=== PATIENT | female | born 2000 ===

== ENCOUNTER 2022-06-08 14:31 | Outpatient (CLI) | payer BC ==
[~2022-06-08] VITALS: Ht 160 cm; Wt 98.2 kg
[2022-06-08 14:54] VITALS: BP 130/77
[2022-06-08] MEDS ORDERED: PREN-37 PO (15:00)
[2022-06-08] MEDS ORDERED: METF500S7 PO (15:00)
[2022-06-08 15:50] VITALS: BP 130/77
--- NOTE | 2022-06-09 08:33 | Physician Query-Final Dx ---
PEARL,06/09/22 0833: Clinic Account Progress/Dx Physician Query: Please give diagnosis Please include # weeks gestation Date of Service Jun 08, 2022 at 14:31 DESIREE NJ MD 06/09/22 1938: Clinic Account Progress/Dx DIAGNOSIS: Diagnosis Gestational diabetes Reactive NST PEARL,MayJun 09, 2022 08:33 DESIREE NJ MD Jun 09, 2022 19:38
== END 2022-06-08 15:50 | disposition home or self-care (01) ==
LOC: LDRP 14:31 → WSo 14:31
PROVIDERS: ATTEND Family Medicine
DX: O24.419 Gestational diabetes mellitus in pregnancy, unspecified control (principal); O36.8390 Maternal care for abnormalities of the fetal heart rate or rhythm, unspecified trimester, not applicable or unspecified; Z3A.00 Weeks of gestation of pregnancy not specified
CPT/HCPCS: 99212

== ENCOUNTER 2022-06-13 15:15 | Inpatient (IN) | payer BC, MEDICAID ==
[~2022-06-13] VITALS: Ht 160 cm; Wt 97.7 kg
[~2022-06-13 15:15] MED LIST: METF500S7 PO; PREN-37 PO
[2022-06-13 19:30] VITALS: BP 134/66
[2022-06-13] MEDS ORDERED: MINERAL OIL 30 ML UDC TOP PRN (19:30)
[2022-06-13] MEDS ORDERED: LACTATED RINGERS 1,000 ML IV SCH (19:30)
[2022-06-13 19:48] LABS: BASOPHILS % (AUTO) 0 % (0-10); EOSINOPHILS # (AUTO) 0.1 10^3/uL (0.0-0.3); EOSINOPHILS % (AUTO) 1 % (0-10); HEMATOCRIT 37 % (35-52); HEMOGLOBIN 12.2 g/dL (11.5-16.0); LYMPHOCYTES # (AUTO) 2.1 10^3/uL (1.0-4.0); LYMPHOCYTES % (AUTO) 24 % (12-44); MEAN CORPUSCULAR HEMOGLOBIN 28 pg (25-34); MEAN CORPUSCULAR HGB CONC 33 g/dL (32-36); MEAN CORPUSCULAR VOLUME 84 fL (80-99); MEAN PLATELET VOLUME 11.9 fL (9.0-12.2); MONOCYTES # (AUTO) 0.7 10^3/uL (0.0-1.0); MONOCYTES % (AUTO) 8 % (0-12); NEUTROPHILS % (AUTO) 67 % (42-75); PLATELET COUNT 318 10^3/uL (130-400); WHITE BLOOD COUNT 8.9 10^3/uL (4.3-11.0)
[2022-06-13] MEDS ORDERED: WATER (STERILE) FOR INJECTION 20 ML ONE (19:58)
[2022-06-13] MEDS ORDERED: AMPICILLIN 2,000 MG/14.8 ML (IV USE) ONE (19:58)
[2022-06-13] MEDS ORDERED: AMPICILLIN FOR IV USE 2,000 MG in NS (IVPB) 50 ML IV ONE (20:07)
[2022-06-13 21:00] VITALS: BP 105/58
[2022-06-13] MEDS: LACTATED RINGERS 1,000 ML IV SCH (21:21)
[2022-06-13] MEDS: CATHETER FLUSH 10 ML SYR IV SCH (21:22)
[2022-06-13 22:00] VITALS: BP 115/73
[2022-06-13 23:06] VITALS: BP 108/68
[2022-06-14] VITALS (77 sets, daily range): BP systolic 101–141; BP diastolic 53–90
[2022-06-14] MEDS: AMPICILLIN FOR IV USE 1,000 MG in NS (IVPB) 50 ML IV SCH ×6 (00:14→21:21)
[2022-06-14] MEDS: LACTATED RINGERS 1,000 ML IV SCH ×3 (00:43→18:25)
[2022-06-14] MEDS ORDERED: fentaNYL INJ 100 MCG/2 ML AMP ONE ×2 (04:58→08:52)
[2022-06-14] MEDS: fentaNYL INJ 100 MCG/2 ML AMP IVP PRN ×2 (05:24→06:53)
[2022-06-14] MEDS: CATHETER FLUSH 10 ML SYR IV SCH (06:02)
[2022-06-14] MEDS ORDERED: fentaNYL 2 mcg/ml BUPIVA 0.125 100 ML ONE (08:23)
--- NOTE | 2022-06-14 08:40 | History & Physical-OB ---
OB - Chief Complaint & HPI Date/Time Date of Admission: Date of Admission: Jun 13, 2022 at 19:17 Date seen by a Provider: Jun 14, 2022 Time Seen by a Provider: 08:00 Chief Complaint/History OB-Reason for Admission/Chief: Induction of Labor Hx : 1 Hx Para: 0 Expected Date of Delivery: Jun 20, 2022 Gestational Age in Weeks: 39 Gestational Age in Days: 0 Indication for induction: medical complication Other reason for admission: G1 at 39w1d admitted for induction of labor due to well controlled GDMA2 on metformin. Followed with weekly BPPs which have been reassuring, EFW on 06/08 was 3540 grams. History of Labs O+, antibody neg, RI. HIV/hepB/RPR NR. GC/chlamydia neg. GBS pos. Allergies and Home Medications Allergies Coded Allergies: acetaminophen (Verified Allergy, Severe, Anaphylaxis, 06/03/22) dextromethorphan (Verified Allergy, Severe, Anaphylaxis, 06/03/22) doxylamine (Verified Allergy, Severe, Anaphylaxis, 06/03/22) pseudoephedrine (Verified Allergy, Severe, Anaphylaxis, 06/03/22) Patient Home Medication List Home Medication List Reviewed: Yes Metformin HCl (Metformin HCl) 500 Mg/5 Ml Solution, 500 MG PO BID, (Reported) Entered as Reported by: ELIZABET KILGORE on 06/08/221499 Last Action: Last Taken Edited Vit/Iron Fumarate/FA ( Tablet) 27 Mg Iron-800 Mcg Tablet, 1 EACH PO, (Reported) Entered as Reported by: ELIZABET KILGORE on 06/08/221499 Last Action: Last Taken Edited OB - History Hx of Present Ultrasounds: Normal mid trimester US Obstetrical Complications: Gestational Diabetes Information Induced Hypertension: No Maternal Gestational Diabetes: Yes Hemorrhage: No Obstetrical History Hx : 1 Hx Para: 0 Patient Past Medical History PMHx: denies surghx: Denies Social History/Family History Alcohol Use: Denies Use Recreational Drug Use: No Smoking Cessation: Never smoker 2nd Hand Smoke Exposure: No Immunizations Influenza Vaccine Up-to-Date: Yes; Up-to-Date (01/29/22) COVID19 Booster (Date): 01/29/22 COVID19 Vaccine Fur Mixer Operator: Soukboard Bivalent Tetanus Booster (TDap): Less than 5yrs (04/13/22) Rubella: immune RPR/VDRL: Negative GBS Status: Positive HBsAG: Negative OB - Admission Exam Physical Exam Vitals: Vital Signs 06/14/22 06:59 Temp 36.4 Pulse 91 Resp 18 B/P (MAP) 118/70 (86) Pulse Ox 100 O2 Delivery Room Air HEENT: NCAT Abdomen: Non tender Extremities: Normal Cervical Dilatation: 4cm Effacement: 100% Station: 0 Membranes: Ruptured Accelerations: Accelerations Present Decelerations: No Decelerations Short Term Variability: Present Layout Inspector Variability: Average (6-25) Contractions on Admission: None Reynolds Scoring Tool (Modified) Dilation (cm): 1-2cm (1) Effacement (%): 0-30% (0) Descent/Station: -3 (0) Cervix Consistency: Soft (2) Cervix Position: Middle/Mid-Position (1) Subtract 1 point for: Nulliparity (-1) Reynolds Score: 3 Labs Laboratory Tests Test 06/13/22 19:35 06/14/22 00:13 06/14/22 04:07 Range/Units White Blood Count 8.9 4.3-11.0 10^3/uL Red Blood Count 4.37 3.80-5.11 10^6/uL Hemoglobin 12.2 11.5-16.0 g/dL Hematocrit 37 35-52 % Mean Corpuscular Volume 84 80-99 fL Mean Corpuscular Hemoglobin 28 25-34 pg Mean Corpuscular Hemoglobin Concent 33 32-36 g/dL Red Cell Distribution Width 15.0 H 10.0-14.5 % Platelet Count 318 130-400 10^3/uL Mean Platelet Volume 11.9 9.0-12.2 fL Immature Granulocyte % (Auto) 0 % Neutrophils (%) (Auto) 67 42-75 % Lymphocytes (%) (Auto) 24 12-44 % Monocytes (%) (Auto) 8 0-12 % Eosinophils (%) (Auto) 1 0-10 % Basophils (%) (Auto) 0 0-10 % Neutrophils # (Auto) 6.0 1.8-7.8 10^3/uL Lymphocytes # (Auto) 2.1 1.0-4.0 10^3/uL Monocytes # (Auto) 0.7 0.0-1.0 10^3/uL Eosinophils # (Auto) 0.1 0.0-0.3 10^3/uL Basophils # (Auto) 0.0 0.0-0.1 10^3/uL Immature Granulocyte # (Auto) 0.0 0.0-0.1 10^3/uL Glucose Level 77 70-105 MG/DL Glucometer 67 L 79 70-110 MG/DL OB - Assessment/Plan/Diagnosis Assessment Admission Dx Term intrauterine at 39 weeks gestation Gestational diabetes controlled with metformin GBS positive Admission Status: Inpatient Order (span 2 midnights) Reason for Inpatient Admission: Induction, labor, course Plan Plan: Induction Induction Method: per Misoprostol Protocol Other Plan Ampicillin for GBS pos Fingerstick glucose q4 DESIREE NJ MD Jun 14, 2022 08:40
[2022-06-14] MEDS ORDERED: BUPIVACAINE 0.25% 10 ML (SENSORCAINE) VIAL ONE (08:53)
[2022-06-14] MEDS: fentaNYL 2 mcg/ml BUPIVA 0.125 100 ML IV SCH ×2 (09:17→16:52)
[2022-06-14] MEDS ORDERED: CATHETER FLUSH 10 ML SYR IV PRN (09:45)
[2022-06-14] MEDS ORDERED: ONDANSETRON 4 MG/2 ML (SDV) Z0FRAN IV PRN (09:45)
[2022-06-14] MEDS ORDERED: LACTATED RINGERS 1,000 ML IV ONE (09:45)
[2022-06-14] MEDS ORDERED: NALOXONE 0.4 MG/ML 1 ML (NARCAN) VIAL IV PRN (09:45)
[2022-06-14] MEDS ORDERED: OXYTOCIN PRE-MIX DRIP 500 ML IV SCH (10:30)
--- NOTE | 2022-06-14 15:58 | Labor Progress Note ---
Labor Progress Note Labor Progress Note Date Seen by Provider: Jun 14, 2022 Time Seen by Provider: 15:45 Subjective: Pt feeling comfortable overall with epidural but has some pelvic pain and pressure. Objective: Last cervical exam per nursing less than 2 hours ago, reported 5-6 cm heart tones: currently 130 beats per minute, moderate variability, reactive; reviewed strip, had period of minimal/nearly absent variability from about [id number], no decels Tocometer: 3 ctx/10 minutes; difficult to trace while side-lying Assessment/Plan: Edgardo Cox is a 21 /Para 1 / 0,Gestational Age (wks)39 here for induction of labor for GDMA2. SROM this morning around 6 am. CEFM/TOCO Continue pitocin Anesthesia: epidural Anticipate vaginal delivery. Vitals - Labs Vital Signs - I&O Vital Signs Date Time Temp Pulse Resp B/P (MAP) Pulse Ox O2 Delivery O2 Flow Rate FiO2 06/14/22 15:36 76 18 124/74 (91) 100 Non Rebreather 15.00 06/14/22 15:20 80 18 120/67 (84) 100 Non Rebreather 15.00 06/14/22 15:06 89 18 109/58 (75) 100 Non Rebreather 15.00 06/14/22 14:51 83 18 112/59 (76) 100 Non Rebreather 15.00 06/14/22 14:41 Non Rebreather 15.00 06/14/22 14:35 89 18 105/57 (73) 98 Room Air 06/14/22 14:20 84 18 101/55 (70) 97 Room Air 06/14/22 14:09 36.2 06/14/22 14:06 88 18 111/64 (80) 97 Room Air 06/14/22 13:50 84 18 110/59 (76) 97 Room Air 06/14/22 13:36 75 18 114/63 (80) 97 Room Air 06/14/22 13:20 89 18 111/65 (80) 96 Room Air 06/14/22 13:05 81 18 111/65 (80) 97 Room Air 06/14/22 12:50 91 18 113/64 (80) 98 Room Air 06/14/22 12:35 95 18 114/65 (81) 98 Room Air 2/6/23 12:21 78 18 112/61 (78) 98 Room Air 06/14/22 12:12 36.4 06/14/22 12:06 93 18 114/62 (79) 98 Room Air 06/14/22 11:50 94 18 115/62 (79) 98 Room Air 06/14/22 11:35 92 18 115/64 (81) 96 Room Air 06/14/22 11:27 36.5 06/14/22 11:22 82 18 121/69 (86) 97 Room Air 06/14/22 11:05 82 18 111/67 (82) 92 Room Air 06/14/22 10:50 77 18 117/67 (84) 97 Room Air 06/14/22 10:35 88 18 120/64 (82) 98 Room Air 06/14/22 10:17 104 18 130/59 (82) 97 Room Air 06/14/22 10:12 36.1 100 18 126/78 (94) 99 Room Air 06/14/22 10:08 82 18 122/75 (91) 100 Room Air 06/14/22 10:03 94 18 122/76 (91) 99 Room Air 06/14/22 09:57 88 18 139/81 (100) 97 Room Air 06/14/22 09:52 80 18 123/71 (88) 98 Room Air 06/14/22 09:47 86 18 118/68 (85) 98 Room Air 06/14/22 09:43 82 18 118/72 (87) 98 Room Air 06/14/22 09:38 81 18 123/72 (89) 98 Room Air 06/14/22 09:32 102 18 123/67 (85) 98 Room Air 06/14/22 09:26 77 20 129/72 (91) Room Air 06/14/22 09:23 86 20 124/71 (88) 98 Room Air 06/14/22 09:20 99 20 127/73 (91) 98 Room Air 06/14/22 09:17 93 20 129/77 (94) Room Air 06/14/22 09:13 90 20 124/74 (91) 95 Room Air 06/14/22 09:10 88 20 129/76 (93) Room Air 06/14/22 09:07 102 20 130/79 (96) 96 Room Air 06/14/22 09:04 109 20 131/71 (91) 97 Room Air 06/14/22 09:01 123 20 125/73 (90) 97 Room Air 06/14/22 08:59 109 20 129/74 (92) 95 Room Air 06/14/22 07:26 35.7 06/14/22 06:59 36.4 91 18 118/70 (86) 100 Room Air 06/14/22 06:02 36.3 91 18 118/70 (86) 100 Room Air 06/14/22 05:58 36.6 74 16 118/70 (86) 100 Room Air 06/14/22 02:35 36.5 72 18 114/71 (85) Room Air 06/14/22 01:00 36.5 06/14/22 00:00 36.3 93 16 121/75 (90) Room Air 06/13/22 23:06 36.3 82 16 108/68 (81) 06/13/22 22:00 36.5 74 18 115/73 (87) Room Air 06/13/22 21:00 76 18 105/58 (74) Room Air 06/13/22 20:00 36.4 06/13/22 19:30 36.3 99 18 100 Room Air I & O 06/14/22 07:00 Intake Total 15 ml Balance 15 ml Labs Laboratory Tests 06/13/22 19:35: White Blood Count 8.9, Red Blood Count 4.37, Hemoglobin 12.2, Hematocrit 37, Mean Corpuscular Volume 84, Mean Corpuscular Hemoglobin 28, Mean Corpuscular Hemoglobin Concent 33, Red Cell Distribution Width 15.0H, Platelet Count 318, Mean Platelet Volume 11.9, Immature Granulocyte % (Auto) 0, Neutrophils (%) (Auto) 67, Lymphocytes (%) (Auto) 24, Monocytes (%) (Auto) 8, Eosinophils (%) (Auto) 1, Basophils (%) (Auto) 0, Neutrophils # (Auto) 6.0, Lymphocytes # (Auto) 2.1, Monocytes # (Auto) 0.7, Eosinophils # (Auto) 0.1, Basophils # (Auto) 0.0, Immature Granulocyte # (Auto) 0.0, Glucose Level 77 06/14/22 00:13: Glucometer 67L 06/14/22 04:07: Glucometer 79 06/14/22 08:13: Glucometer 102 06/14/22 12:10: Glucometer 103 DESIREE NJ MD Jun 14, 2022 15:58
--- NOTE | 2022-06-14 16:19 | Labor Progress Note ---
Labor Progress Note Labor Progress Note Date Seen by Provider: Jun 14, 2022 Time Seen by Provider: 16:00 Subjective: heart rate tracing lost, per bedside nurse, able to hear heart tones in the 80s, called to bedside, and heart tones 100-110 at that time. Objective: Cervical exam: /+1 Consistency: soft Position: anterior Presentation: vertex Assessment/Plan: Edgardo Cox is a (21 /Para 1 / 0,Gestational Age (wks)39 here for induction of labor due to GDMA2. FSE placed and heart tones in 130s with moderate variability. Some cervical change from last check. Discussed with patient and if recurrent prolonged decelerations may need emergent delivery, but current heart tones are reassuring, will monitor closely. FSE/TOCO Continue pitocin Anesthesia: Epidural Anticipate vaginal delivery. Vitals - Labs Vital Signs - I&O Vital Signs Date Time Temp Pulse Resp B/P (MAP) Pulse Ox O2 Delivery O2 Flow Rate FiO2 06/14/22 15:36 76 18 124/74 (91) 100 Non Rebreather 15.00 06/14/22 15:20 80 18 120/67 (84) 100 Non Rebreather 15.00 06/14/22 15:06 89 18 109/58 (75) 100 Non Rebreather 15.00 06/14/22 14:51 83 18 112/59 (76) 100 Non Rebreather 15.00 06/14/22 14:41 Non Rebreather 15.00 06/14/22 14:35 89 18 105/57 (73) 98 Room Air 06/14/22 14:20 84 18 101/55 (70) 97 Room Air 06/14/22 14:09 36.2 06/14/22 14:06 88 18 111/64 (80) 97 Room Air 06/14/22 13:50 84 18 110/59 (76) 97 Room Air 06/14/22 13:36 75 18 114/63 (80) 97 Room Air 06/14/22 13:20 89 18 111/65 (80) 96 Room Air 06/14/22 13:05 81 18 111/65 (80) 97 Room Air 06/14/22 12:50 91 18 113/64 (80) 98 Room Air 06/14/22 12:35 95 18 114/65 (81) 98 Room Air 06/14/22 12:21 78 18 112/61 (78) 98 Room Air 06/14/22 12:12 36.4 06/14/22 12:06 93 18 114/62 (79) 98 Room Air 06/14/22 11:50 94 18 115/62 (79) 98 Room Air 06/14/22 11:35 92 18 115/64 (81) 96 Room Air 06/14/22 11:27 36.5 06/14/22 11:22 82 18 121/69 (86) 97 Room Air 06/14/22 11:05 82 18 111/67 (82) 92 Room Air 06/14/22 10:50 77 18 117/67 (84) 97 Room Air 06/14/22 10:35 88 18 120/64 (82) 98 Room Air 06/14/22 10:17 104 18 130/59 (82) 97 Room Air 06/14/22 10:12 36.1 100 18 126/78 (94) 99 Room Air 06/14/22 10:08 82 18 122/75 (91) 100 Room Air 06/14/22 10:03 94 18 122/76 (91) 99 Room Air 06/14/22 09:57 88 18 139/81 (100) 97 Room Air 06/14/22 09:52 80 18 123/71 (88) 98 Room Air 06/14/22 09:47 86 18 118/68 (85) 98 Room Air 06/14/22 09:43 82 18 118/72 (87) 98 Room Air 06/14/22 09:38 81 18 123/72 (89) 98 Room Air 06/14/22 09:32 102 18 123/67 (85) 98 Room Air 06/14/22 09:26 77 20 129/72 (91) Room Air 06/14/22 09:23 86 20 124/71 (88) 98 Room Air 06/14/22 09:20 99 20 127/73 (91) 98 Room Air 06/14/22 09:17 93 20 129/77 (94) Room Air 06/14/22 09:13 90 20 124/74 (91) 95 Room Air 06/14/22 09:10 88 20 129/76 (93) Room Air 06/14/22 09:07 102 20 130/79 (96) 96 Room Air 06/14/22 09:04 109 20 131/71 (91) 97 Room Air 06/14/22 09:01 123 20 125/73 (90) 97 Room Air 06/14/22 08:59 109 20 129/74 (92) 95 Room Air 06/14/22 07:26 35.7 06/14/22 06:59 36.4 91 18 118/70 (86) 100 Room Air 06/14/22 06:02 36.3 91 18 118/70 (86) 100 Room Air 06/14/22 05:58 36.6 74 16 118/70 (86) 100 Room Air 06/14/22 02:35 36.5 72 18 114/71 (85) Room Air 06/14/22 01:00 36.5 06/14/22 00:00 36.3 93 16 121/75 (90) Room Air 06/13/22 23:06 36.3 82 16 108/68 (81) 06/13/22 22:00 36.5 74 18 115/73 (87) Room Air 06/13/22 21:00 76 18 105/58 (74) Room Air 06/13/22 20:00 36.4 06/13/22 19:30 36.3 99 18 100 Room Air I & O 06/14/22 07:00 Intake Total 15 ml Balance 15 ml Labs Laboratory Tests 06/13/22 19:35: White Blood Count 8.9, Red Blood Count 4.37, Hemoglobin 12.2, Hematocrit 37, Me an Corpuscular Volume 84, Mean Corpuscular Hemoglobin 28, Mean Corpuscular Hemoglobin Concent 33, Red Cell Distribution Width 15.0H, Platelet Count 318, Mean Platelet Volume 11.9, Immature Granulocyte % (Auto) 0, Neutrophils (%) (Auto) 67, Lymphocytes (%) (Auto) 24, Monocytes (%) (Auto) 8, Eosinophils (%) (Auto) 1, Basophils (%) (Auto) 0, Neutrophils # (Auto) 6.0, Lymphocytes # (Auto) 2.1, Monocytes # (Auto) 0.7, Eosinophils # (Auto) 0.1, Basophils # (Auto) 0.0, Immature Granulocyte # (Auto) 0.0, Glucose Level 77 06/14/22 00:13: Glucometer 67L 06/14/22 04:07: Glucometer 79 06/14/22 08:13: Glucometer 102 06/14/22 12:10: Glucometer 103 DESIREE NJ MD Jun 14, 2022 16:19
[2022-06-14] MEDS ORDERED: LIDOCAINE 1% INJ 10 ML VIAL ONE (19:44)
[2022-06-14] MEDS: OXYTOCIN PRE-MIX DRIP 500 ML IV SCH (23:38)
[2022-06-15] VITALS (11 sets, daily range): BP systolic 106–130; BP diastolic 56–70
[2022-06-15] MEDS: OXYTOCIN PRE-MIX DRIP 500 ML IV SCH (00:02)
--- NOTE | 2022-06-15 00:20 | OB Labor & Delivery Record ---
Vag Delivery Note Vag Delivery Note Date of Delivery: 06/15/22 Preoperative Diagnosis: Edgardo Cox is a (21 /Para 1 / 0,Gestational Age (wks)39with 1 day Postoperative Diagnosis: Same Surgeon: DESIREE NJ Anesthesia: Epidural Delivery Type: Findings: Viable female , apgars 9/9, weight 8#13 Lacerations: third degree perineal, right periurethral Intact placenta with 3 vessel cord. No nuchal cord, body cord or shoulder dystocia Estimated Blood Loss: 200 ml Complications: None Condition: Stable Description of Procedure: The patient is a 21 year old female who presented for induction of labor due to GDMA2. She was admitted and informed consent was obtained. Her labor course was remarkable for prolonged active phase and second stage. She progressed to complete dilatation and began to push. She was then set up for delivery. The 's head was delivered atraumatically in the AL position. The shoulders and remainder of the infant's body were then delivered without difficulty. Upon delivery, the infant was vigorous and placed on maternal chest and the mouth and nares were bulb suctioned. After a delay cord was doubly clamped and cut and the infant remained on maternal chest. An intact placenta with 3-vessel cord delivered via Bisi and there was found to be minimal bleeding.~ Vigorous fundal massage was performed and the fundus was found to be firm. IV oxytocin was given. Examination of the vagina and perineum revealed a third degree perineal laceration repaired in the usual fashion with 2-0 vicryl for the muscle layer and 3-0 vicryl rapide suture for the second degree section. Following the repair, sponge, instrument and needle counts were correct. Mom and baby were both in stable condition in the labor suite. Vitals - Labs Vital Signs - I&O Vital Signs Date Time Temp Pulse Resp B/P (MAP) Pulse Ox O2 Delivery O2 Flow Rate FiO2 06/14/22 18:50 37.1 97 18 119/63 (81) 98 Room Air 06/14/22 18:36 98 18 109/55 (73) 99 Room Air 06/14/22 18:20 96 18 112/56 (74) 98 Room Air 06/14/22 18:07 96 18 119/66 (83) 98 Room Air 06/14/22 17:50 94 18 109/61 (77) 98 Room Air 06/14/22 17:35 96 18 111/59 (76) 99 Room Air 06/14/22 17:20 104 18 110/55 (73) 98 Room Air 06/14/22 17:05 104 18 112/55 (74) 98 Room Air 06/14/22 16:50 90 18 110/59 (76) 99 Room Air 06/14/22 16:35 88 18 131/82 (98) 100 Non Rebreather 15.00 06/14/22 16:23 85 18 134/77 (96) 100 Non Rebreather 15.00 06/14/22 16:05 92 18 130/84 (99) 100 Non Rebreather 15.00 06/14/22 15:50 76 18 123/72 (89) 100 Non Rebreather 15.00 06/14/22 15:36 76 18 124/74 (91) 100 Non Rebreather 15.00 06/14/22 15:20 80 18 120/67 (84) 100 Non Rebreather 15.00 06/14/22 15:06 89 18 109/58 (75) 100 Non Rebreather 15.00 06/14/22 14:51 83 18 112/59 (76) 100 Non Rebreather 15.00 06/14/22 14:41 Non Rebreather 15.00 06/14/22 14:35 89 18 105/57 (73) 98 Room Air 06/14/22 14:20 84 18 101/55 (70) 97 Room Air 06/14/22 14:09 36.2 06/14/22 14:06 88 18 111/64 (80) 97 Room Air 06/14/22 13:50 84 18 110/59 (76) 97 Room Air 06/14/22 13:36 75 18 114/63 (80) 97 Room Air 06/14/22 13:20 89 18 111/65 (80) 96 Room Air 06/14/22 13:05 81 18 111/65 (80) 97 Room Air 06/14/22 12:50 91 18 113/64 (80) 98 Room Air 06/14/22 12:35 95 18 114/65 (81) 98 Room Air 06/14/22 12:21 78 18 112/61 (78) 98 Room Air 06/14/22 12:12 36.4 06/14/22 12:06 93 18 114/62 (79) 98 Room Air 06/14/22 11:50 94 18 115/62 (79) 98 Room Air 06/14/22 11:35 92 18 115/64 (81) 96 Room Air 06/14/22 11:27 36.5 06/14/22 11:22 82 18 121/69 (86) 97 Room Air 06/14/22 11:05 82 18 111/67 (82) 92 Room Air 06/14/22 10:50 77 18 117/67 (84) 97 Room Air 06/14/22 10:35 88 18 120/64 (82) 98 Room Air 06/14/22 10:17 104 18 130/59 (82) 97 Room Air 06/14/22 10:12 36.1 100 18 126/78 (94) 99 Room Air 06/14/22 10:08 82 18 122/75 (91) 100 Room Air 06/14/22 10:03 94 18 122/76 (91) 99 Room Air 06/14/22 09:57 88 18 139/81 (100) 97 Room Air 06/14/22 09:52 80 18 123/71 (88) 98 Room Air 06/14/22 09:47 86 18 118/68 (85) 98 Room Air 06/14/22 09:43 82 18 118/72 (87) 98 Room Air 06/14/22 09:38 81 18 123/72 (89) 98 Room Air 06/14/22 09:32 102 18 123/67 (85) 98 Room Air 06/14/22 09:26 77 20 129/72 (91) Room Air 06/14/22 09:23 86 20 124/71 (88) 98 Room Air 06/14/22 09:20 99 20 127/73 (91) 98 Room Air 06/14/22 09:17 93 20 129/77 (94) Room Air 06/14/22 09:13 90 20 124/74 (91) 95 Room Air 06/14/22 09:10 88 20 129/76 (93) Room Air 06/14/22 09:07 102 20 130/79 (96) 96 Room Air 06/14/22 09:04 109 20 131/71 (91) 97 Room Air 06/14/22 09:01 123 20 125/73 (90) 97 Room Air 06/14/22 08:59 109 20 129/74 (92) 95 Room Air 06/14/22 07:26 35.7 06/14/22 06:59 36.4 91 18 118/70 (86) 100 Room Air 06/14/22 06:02 36.3 91 18 118/70 (86) 100 Room Air 06/14/22 05:58 36.6 74 16 118/70 (86) 100 Room Air 06/14/22 02:35 36.5 72 18 114/71 (85) Room Air 06/14/22 01:00 36.5 I & O 06/15/22 07:00 Intake Total 1000 ml Balance 1000 ml Labs Laboratory Tests 06/14/22 04:07: Glucometer 79 06/14/22 08:13: Glucometer 102 06/14/22 12:10: Glucometer 103 06/14/22 16:45: Glucometer 71 06/14/22 20:42: Glucometer 94 06/14/22 21:28: Glucometer 94 06/14/22 23:26: Glucometer 132H DESIREE NJ MD Jun 15, 2022 00:20
[2022-06-15] MEDS ORDERED: WITCH HAZEL(TUCKS) 40 EA JAR TOP PRN (00:30)
[2022-06-15] MEDS ORDERED: BENZOCAINE/MENTHOL (DERMOPLAST) 56 ML CAN TP PRN (00:30)
[2022-06-15] MEDS ORDERED: DIBUCAINE 1% OINTMENT 28 GM TUBE TOP PRN (00:30)
[2022-06-15] MEDS ORDERED: IBUPROFEN 600 MG (MOTRIN) TAB PO ONE (02:28)
[2022-06-15] MEDS: IBUPROFEN 600 MG (MOTRIN) TAB PO SCH ×4 (02:34→21:05)
[2022-06-15] MEDS ORDERED: CATHETER FLUSH 10 ML SYR IV SCH (06:00)
[2022-06-15] MEDS: DOCUSATE SODIUM 100 MG (COLACE) CAP PO SCH ×2 (08:40→21:05)
--- NOTE | 2022-06-15 10:12 | Anesthesia-Regional Post-Op ---
Regional Patient Condition Mental Status: Alert, Oriented x3 Circulation: Same as Pre-Op Headache: Absent Sensation: Full Recovery Motor Block: Absent Post Op Complications Complications None Follow Up Care/Instructions Patient Instructions None needed. Anesthesia/Patient Condition Patient is doing well, no complaints, stable vital signs, no apparent adverse anesthesia problems. No complications reported per nursing. D/C home per [facility] Criteria: Yes CARLOS ALBERTO MEZA CRNA Jun 15, 2022 10:12
--- NOTE | 2022-06-15 18:48 | Progress Note ---
Subjective Subjective/Events-last exam Doing well. Bleeding slowed. Objective Exam Last Set of Vital Signs Vital Signs Date Time Temp Pulse Resp B/P (MAP) Pulse Ox O2 Delivery O2 Flow Rate FiO2 06/15/22 16:57 36.4 85 18 109/70 (83) 98 Room Air 06/14/22 23:20 15.00 Capillary Refill : Less Than 3 Seconds I&O Intake and Output 06/15/22 00:00 Intake Total 1050 ml Balance 1050 ml Intake IV Total 1050 ml Blood Loss Quantification Method 200 ml General: Alert, Oriented X3, Cooperative Psych/Mental Status: Mental Status NL, Mood NL Results/Procedures Lab Laboratory Tests 06/14/22 20:42: Glucometer 94 06/14/22 21:28: Glucometer 94 06/14/22 23:26: Glucometer 132H Assessment/Plan Assessment/Plan Assessment & Plan PPD#1, s/p on 06/13/22 @39wk IOL secondary to GDMA2 controlled with metformin 3rd degree laceration Routine care Stool softeners GERSON JIMENES DO Jun 15, 2022 18:48
[2022-06-16] MEDS: IBUPROFEN 600 MG (MOTRIN) TAB PO SCH ×4 (02:49→21:34)
[2022-06-16 02:50] VITALS: BP 113/66
[2022-06-16 05:56] LABS: BASOPHILS % (AUTO) 0 % (0-10); EOSINOPHILS # (AUTO) 0.1 10^3/uL (0.0-0.3); EOSINOPHILS % (AUTO) 1 % (0-10); HEMATOCRIT 31 % (35-52); HEMOGLOBIN 9.8 g/dL (11.5-16.0); LYMPHOCYTES # (AUTO) 2.4 10^3/uL (1.0-4.0); LYMPHOCYTES % (AUTO) 19 % (12-44); MEAN CORPUSCULAR HEMOGLOBIN 28 pg (25-34); MEAN CORPUSCULAR HGB CONC 32 g/dL (32-36); MEAN CORPUSCULAR VOLUME 88 fL (80-99); MEAN PLATELET VOLUME 11.6 fL (9.0-12.2); MONOCYTES # (AUTO) 0.9 10^3/uL (0.0-1.0); MONOCYTES % (AUTO) 7 % (0-12); NEUTROPHILS # (AUTO) 9.1 10^3/uL (1.8-7.8); NEUTROPHILS % (AUTO) 72 % (42-75); PLATELET COUNT 229 10^3/uL (130-400); WHITE BLOOD COUNT 12.6 10^3/uL (4.3-11.0)
[2022-06-16 09:00] VITALS: BP 116/67
[2022-06-16] MEDS: DOCUSATE SODIUM 100 MG (COLACE) CAP PO SCH ×2 (09:06→21:34)
--- NOTE | 2022-06-16 11:30 | Progress Note ---
Subjective Subjective/Events-last exam Doing well. blood sugars have been running low. Breast feeding has been going well. Objective Exam Last Set of Vital Signs Vital Signs Date Time Temp Pulse Resp B/P (MAP) Pulse Ox O2 Delivery O2 Flow Rate FiO2 06/16/22 09:00 36.4 77 18 116/67 (83) 97 Room Air 06/14/22 23:20 15.00 Capillary Refill : Less Than 3 Seconds I&O Intake and Output 06/16/22 00:00 Intake Total 1900 ml Balance 1900 ml Intake IV Total 1900 ml Blood Loss Quantification Method 200 ml General: Alert, Oriented X3, Cooperative Psych/Mental Status: Mental Status NL, Mood NL Results/Procedures Lab Laboratory Tests 06/16/22 05:33: White Blood Count 12.6H, Red Blood Count 3.51L, Hemoglobin 9.8L, Hematocrit 31L, Mean Corpuscular Volume 88, Mean Corpuscular Hemoglobin 28, Mean Corpuscular Hemoglobin Concent 32, Red Cell Distribution Width 15.9H, Platelet Count 229, Mean Platelet Volume 11.6, Immature Granulocyte % (Auto) 1, Neutrophils (%) (Auto) 72, Lymphocytes (%) (Auto) 19, Monocytes (%) (Auto) 7, Eosinophils (%) (Auto) 1, Basophils (%) (Auto) 0, Neutrophils # (Auto) 9.1H, Lymphocytes # (Auto) 2.4, Monocytes # (Auto) 0.9, Eosinophils # (Auto) 0.1, Basophils # (Auto) 0.0, Immature Granulocyte # (Auto) 0.1 Assessment/Plan Assessment/Plan Assessment & Plan PPD#2, s/p on 06/14/22 @39wk IOL secondary to GDMA2 controlled with metformin 3rd degree laceration Routine care Stool softeners Delaying discharge due to hypoglycemia. GERSON JIMENES DO Jun 16, 2022 11:30
[2022-06-16 14:15] VITALS: BP 124/76
[2022-06-16 20:30] VITALS: BP 136/81
[2022-06-17 05:15] VITALS: BP 121/76
[2022-06-17] MEDS: IBUPROFEN 600 MG (MOTRIN) TAB PO SCH ×2 (05:27→12:06)
[2022-06-17 08:05] VITALS: BP 119/77
[2022-06-17] MEDS: DOCUSATE SODIUM 100 MG (COLACE) CAP PO SCH (08:05)
[2022-06-17] MEDS ORDERED: IBUP-844 PO (09:42)
--- NOTE | 2022-06-17 09:46 | Short Stay Summary ---
Discharge Summary Hospital Course Final Diagnosis: see Hospital Course Hospital Course Date of Admission: Jun 13, 2022 at 19:17 Admission Diagnosis : IOL at 39wk GDMA2 GBS positive Family Physician/Provider: River Date of Discharge: 06/17/22 Discharge Diagnosis: [ ] PPD#3, s/p on 06/14/22 @39wk IOL secondary to GDMA2 controlled with metformin 3rd degree laceration Hospital Course: Routine care Stool softeners Labs and Pending Lab Test: Laboratory Tests 06/14/22 12:10: Glucometer 103 06/14/22 16:45: Glucometer 71 06/14/22 20:42: Glucometer 94 06/14/22 21:28: Glucometer 94 06/14/22 23:26: Glucometer 132H 06/16/22 05:33: White Blood Count 12.6H, Red Blood Count 3.51L, Hemoglobin 9.8L, Hematocrit 31L, Mean Corpuscular Volume 88, Mean Corpuscular Hemoglobin 28, Mean Corpuscular Hemoglobin Concent 32, Red Cell Distribution Width 15.9H, Platelet Count 229, Mean Platelet Volume 11.6, Immature Granulocyte % (Auto) 1, Neutrophils (%) (Auto) 72, Lymphocytes (%) (Auto) 19, Monocytes (%) (Auto) 7, Eosinophils (%) (Auto) 1, Basophils (%) (Auto) 0, Neutrophils # (Auto) 9.1H, Lymphocytes # (A uto) 2.4, Monocytes # (Auto) 0.9, Eosinophils # (Auto) 0.1, Basophils # (Auto) 0.0, Immature Granulocyte # (Auto) 0.1 Discharge Medications: Discontinue Metformin HCl 500 Mg/5 Ml Solution 500 Mg PO BID Continue Tablet ( Vit/Iron Fumarate/FA) 27 Mg Iron-800 Mcg Tablet 1 Each PO Prescription for Ibuprofen 600mg every 6 hours as needed for cramps/pain. Assessment/Pt Instructions Follow up with Dr. Holman in 6 weeks or sooner as needed. Discharge Physical Examination General Appearance: Alert, Oriented X3, Cooperative Psych/Mental Status: Mental Status NL, Mood NL Allergies: Coded Allergies: acetaminophen (Verified Allergy, Severe, Anaphylaxis, 06/03/22) dextromethorphan (Verified Allergy, Severe, Anaphylaxis, 06/03/22) doxylamine (Verified Allergy, Severe, Anaphylaxis, 06/03/22) pseudoephedrine (Verified Allergy, Severe, Anaphylaxis, 06/03/22) Discharge Summary Date of Admission Jun 13, 2022 at 19:17 Date of Discharge GERSON JIMENES DO Jun 17, 2022 09:46
[2022-06-17 17:25] VITALS: BP 119/77
== END 2022-06-17 17:25 | disposition home or self-care (01) | DRG 768 ==
LOC: LDRP 19:17
PROVIDERS: ADMIT Family Medicine; ATTEND Family Medicine
PROC: 3E0DXGC Introduction of Other Therapeutic Substance into Mouth and Pharynx, External Approach (ICD-10-PCS; 2022-06-13)
PROC: 10E0XZZ Delivery of Products of Conception, External Approach (ICD-10-PCS; principal; 2022-06-15)
PROC: 0DQR0ZZ Repair Anal Sphincter, Open Approach (ICD-10-PCS; 2022-06-15)
DX: O24.425 Gestational diabetes mellitus in childbirth, controlled by oral hypoglycemic drugs (principal); Z37.0 Single live birth; O70.20 Third degree perineal laceration during delivery, unspecified; Z3A.39 39 weeks gestation of pregnancy; O99.824 Streptococcus B carrier state complicating childbirth; O71.82 Other specified trauma to perineum and vulva; O63.1 Prolonged second stage (of labor); O63.0 Prolonged first stage (of labor); Z79.84 Long term (current) use of oral hypoglycemic drugs
CPT/HCPCS: 36415; 82947; 85025; 86780; 86850; 86900; 86901